=== PATIENT | male | born 1965 | race Asian ===

== ENCOUNTER 2017-01-04 12:12 | Day surgery (SDC) | payer BC ==
[~2017-01-04] VITALS: Ht 177.8 cm; Wt 76.0 kg
[~2017-01-04 12:12] MED LIST: ROPIvacaine/PF 0.5%, 20 ML ONE
[2017-01-04 12:57] VITALS: BP 120/85
[2017-01-04] MEDS ORDERED: LACTATED RINGERS 1,000 ML IV SCH (13:00)
[2017-01-04] MEDS ORDERED: FENTANYL PF 100 MCG/2ML ONE (13:07)
[2017-01-04] MEDS ORDERED: MIDAZOLAM 1 MG/ML, 2ML ONE (13:08)
[2017-01-04] MEDS ORDERED: BACITRACIN 50,000 UNIT ONE (13:19)
[2017-01-04] MEDS ORDERED: LIDOCAINE/PF 1%, 30ML ONE (13:19)
[2017-01-04] MEDS ORDERED: EPINEPHRINE 1 MG/ML, 1ML ONE (13:19)
[2017-01-04] MEDS ORDERED: ATEN25TA PO (13:29)
[2017-01-04] MEDS ORDERED: ATOR10TA9 PO (13:29)
[2017-01-04] MEDS ORDERED: BUPIVACAINE/PF-EPI 0.5% 1:200K ONE (13:52)
[2017-01-04] MEDS ORDERED: ONDANSETRON 2MG/ML, 2ML ONE (14:12)
[2017-01-04] MEDS ORDERED: CEFAZOLIN 1,000 MG ONE (14:12)
[2017-01-04] MEDS ORDERED: PROPOFOL 10 MG/ML, 20ML ONE (14:12)
[2017-01-04] MEDS ORDERED: DEXAMETHASONE 4 MG/ML, 1ML ONE (14:12)
[2017-01-04] MEDS ORDERED: BUPIVACAINE/PF-EPI 0.5% 1:200K INFIL ONE (14:28)
[2017-01-04] MEDS ORDERED: FENTANYL PF 100 MCG/2ML IV PRN (15:30)
[2017-01-04] MEDS ORDERED: KETOROLAC 30 MG/1 ML IV PRN (15:30)
[2017-01-04] MEDS ORDERED: OXYcodone 5 MG/5 ML ORAL.SOL UDC PO PRN (15:30)
[2017-01-04] MEDS ORDERED: ACETAMINOPHEN 325 MG TABLET PO PRN (15:30)
[2017-01-04] MEDS ORDERED: PROMETHAZINE 25 MG/ML, 1ML IV PRN (15:30)
[2017-01-04] MEDS ORDERED: HYDROmorphone 1 MG/ML, 1ML IV PRN (15:30)
[2017-01-04] MEDS ORDERED: MEPERIDINE/PF 25MG/0.5ML IVPush PRN (15:30)
== END 2017-01-04 17:20 ==
LOC: OUT 12:12
PROVIDERS: ATTEND Orthopaedic Surgery
DX: S76.112A Strain of left quadriceps muscle, fascia and tendon, initial encounter (principal); I10 Essential (primary) hypertension; E78.5 Hyperlipidemia, unspecified; X58.XXXA Exposure to other specified factors, initial encounter; Y93.9 Activity, unspecified; Y92.9 Unspecified place or not applicable; Y99.9 Unspecified external cause status
CPT/HCPCS: 27385; J0690; J1100; J2250; J2405; J2704; J2795; J3010; J7120; J0171; J3490